=== PATIENT | female | born 1965 | race African-American/Black ===

== ENCOUNTER 2017-07-05 16:55 | Emergency (ER) | payer OTHER ==
[~2017-07-05] VITALS: Ht 165.1 cm; Wt 69.0 kg
[2017-07-05] MEDS ORDERED: INSULIN (16:59)
[2017-07-05 18:50] LABS: *AMPHETAMINES SCREEN URINE NEGATIVE (NEGATIVE); *BARBITURATES SCREEN URINE NEGATIVE (NEGATIVE); *BENZODIAZEPINES SCREEN URINE NEGATIVE (NEGATIVE); *COCAINE SCREEN URINE NEGATIVE (NEGATIVE); CANNABINOID URINE SCREEN NEGATIVE (NEGATIVE); METHADONE URINE SCREEN NEGATIVE (NEGATIVE); OPIATES URINE SCREEN NEGATIVE (NEGATIVE); PHENCYCLIDINE URINE SCREEN NEGATIVE (NEGATIVE)
[2017-07-05 19:02] LABS: HEMATOCRIT. 41.5 % (36.0-48.0); HEMOGLOBIN. 13.8 g/dL (12.0-16.0); MEAN CORPUSCULAR VOLUME 81.1 fL (81.0-99.0); MEAN PLATELET VOLUME 8.6 fl (7.4-10.4); PLATELET 51 x1000/uL (130-400); RED BLOOD CELL COUNT 5.12 mill/uL (4.2-5.4); RED CELL DISTRIBUTION WIDTH 15.4 % (11.6-14.6)
[2017-07-05 19:07] LABS: CARBON DIOXIDE 27 mEq/L (21-32); CHLORIDE 107 mEq/L (98-107); ETHANOL BLOOD 134 mg/dL
[2017-07-05 19:58] LABS: PLATELET ESTIMATE DECREASED
[2017-07-05 21:10] VITALS: BP 114/71
== END 2017-07-05 21:27 | disposition home or self-care (01) ==
LOC: ER 16:55
DX: F10.129 Alcohol abuse with intoxication, unspecified (principal); E11.9 Type 2 diabetes mellitus without complications; R53.1 Weakness; R56.9 Unspecified convulsions; Z79.4 Long term (current) use of insulin; Y90.6 Blood alcohol level of 120-199 mg/100 ml
CPT/HCPCS: 36415; 80053; 80305; 82962; 85025; 99284; G0482

== ENCOUNTER 2017-07-26 14:09 | Emergency (ER) | payer OTHER ==
[~2017-07-26] VITALS: Ht 167.6 cm; Wt 55.0 kg
[~2017-07-26 14:09] MED LIST: INSULIN
[2017-07-26 14:12] VITALS: BP 127/70
[2017-07-27] MEDS ORDERED: NAPR220C7 PO (08:55)
[2017-07-27] MEDS ORDERED: FLUO60SO3 TP (08:55)
[2017-07-27] MEDS ORDERED: GABA-529 PO (08:55)
[2017-07-27] MEDS ORDERED: QUET200T PO (08:55)
[2017-07-27] MEDS ORDERED: PROT20 PO (08:55)
[2017-07-27] MEDS ORDERED: FERR325T6 PO (08:55)
[2017-07-27] MEDS ORDERED: FURO-152 PO (08:55)
[2017-07-27] MEDS ORDERED: PROP10TA10 PO (08:55)
[2017-07-27] MEDS ORDERED: SPIR50TA26 PO (08:55)
[2017-07-27] MEDS ORDERED: LEVE500T19 PO (08:55)
[2017-07-27] MEDS ORDERED: DOCU-150 PO (08:55)
[2017-07-27] MEDS ORDERED: [UNRECOGNIZED DRUG - OTHER] PO (13:34)
[2017-07-27] MEDS ORDERED: CA C1TAB87 PO (13:34)
[2017-07-27] MEDS ORDERED: LIVER SUPPORT PO (13:34)
[2017-07-27] MEDS ORDERED: CHOL20004 PO (13:34)
== END 2017-07-26 17:30 | disposition left against medical advice (07) ==
LOC: ER 14:54
DX: Z53.21 Procedure and treatment not carried out due to patient leaving prior to being seen by health care provider (principal)

== ENCOUNTER 2017-07-26 21:58 | Inpatient (IN) | payer OTHER, MEDICAID ==
[~2017-07-26] VITALS: Ht 175.3 cm; Wt 72.6 kg
[2017-07-26 23:05] LABS: CHLORIDE 108 mEq/L (98-107)
[2017-07-26 23:10] LABS: CARBON DIOXIDE 25 mEq/L (21-32)
[2017-07-26 23:11] LABS: BASOPHILS % 0.4 % (0.0-2.0); EOSINOPHILS % 0.1 % (0.0-5.0); HEMATOCRIT. 36.7 % (36.0-48.0); HEMOGLOBIN. 12.7 g/dL (12.0-16.0); LYMPHOCYTES % 27.4 % (20.0-50.0); MEAN CORPUSCULAR HEMOGLOBIN 29.3 pg (28.0-32.0); MEAN CORPUSCULAR VOLUME 84.7 fL (81.0-99.0); MEAN PLATELET VOLUME 7.8 fl (7.4-10.4); MONOCYTES % 9.4 % (2.0-8.0); NEUTROPHILS % 62.7 % (40.0-76.0); RED BLOOD CELL COUNT 4.33 mill/uL (4.2-5.4); RED CELL DISTRIBUTION WIDTH 20.4 % (11.6-14.6)
[2017-07-26 23:16] LABS: CREATINE KINASE 438 IU/L (26-192); CREATINE KINASE MB FRACTION 1.8 ng/mL (0.5-3.6); TROPONIN I < 0.02 ng/mL (0.00-0.04)
[2017-07-26] MEDS ORDERED: DEXT 10% WATER 1,000 ML IV ONE (23:41)
[2017-07-27 00:38] LABS: CLARITY URINE CLEAR (CLEAR); COLOR URINE YELLOW (YELLOW); GLUCOSE URINE NEGATIVE (NEGATIVE); KETONES URINE NEGATIVE (NEGATIVE); LEUKOCYTE ESTERASE URINE NEGATIVE (NEGATIVE); NITRITE URINE NEGATIVE (NEGATIVE); OCCULT BLOOD URINE NEGATIVE (NEGATIVE); PH URINE 6.5 (4.5-8.0); PROTEIN URINE NEGATIVE (NEGATIVE); SPECIFIC GRAVITY URINE 1.007 (1.005-1.030)
[2017-07-27 05:55] VITALS: BP 137/70
[2017-07-27 06:26] VITALS: BP 137/70
[2017-07-27 08:00] VITALS: BP 118/70
[2017-07-27] MEDS ORDERED: LEVE500T19 PO (08:55)
[2017-07-27] MEDS ORDERED: DOCU-150 PO (08:55)
[2017-07-27] MEDS ORDERED: PROP10TA10 PO (08:55)
[2017-07-27] MEDS ORDERED: FERR325T6 PO (08:55)
[2017-07-27] MEDS ORDERED: GABA-529 PO (08:55)
[2017-07-27] MEDS ORDERED: NAPR220C7 PO (08:55)
[2017-07-27] MEDS ORDERED: QUET200T PO (08:55)
[2017-07-27] MEDS ORDERED: SPIR50TA26 PO (08:55)
[2017-07-27] MEDS ORDERED: PROT20 PO (08:55)
[2017-07-27] MEDS ORDERED: FLUO60SO3 TP (08:55)
[2017-07-27] MEDS ORDERED: FURO-152 PO (08:55)
[2017-07-27] MEDS ORDERED: CLONIDINE 0.1MG TABLET PO PRN (10:00)
[2017-07-27] MEDS ORDERED: DEXTROSE 50% WATER 50ML SYRINGE IV PRN (10:00)
[2017-07-27] MEDS ORDERED: MAGNESIUM 2 G PREMIX 50 ML IV PRN (10:00)
[2017-07-27] MEDS ORDERED: MAGNESIUM/ALUMINUM HYDROXIDE/SIMETHICONE 30ML UDC PO PRN (10:00)
[2017-07-27] MEDS ORDERED: DIPHENHYDRAMINE 50MG/ML VIAL IV PRN (10:00)
[2017-07-27] MEDS: ACETAMINOPHEN 325MG TABLET PO PRN ×2 (11:25→21:14)
[2017-07-27] MEDS: BLOOD SUGAR DIAGNOSTIC STRIP TEST SCH ×3 (11:29→20:46)
[2017-07-27] MEDS ORDERED: POTASSIUM CHLORIDE 20MEQ TABLET SR PO SCH (12:00)
[2017-07-27] MEDS ORDERED: DEXT 5%/0.45% NACL KCL 40MEQ/L 1,000 ML IV SCH (12:00)
[2017-07-27 12:03] VITALS: BP 112/47
[2017-07-27] MEDS: GABAPENTIN 100MG CAPSULE PO SCH ×2 (12:41→16:48)
[2017-07-27] MEDS: INSULIN LISPRO 100 UNITS/ML SUBCUT SCH ×3 (12:47→20:56)
[2017-07-27] MEDS ORDERED: CA C1TAB87 PO (13:34)
[2017-07-27] MEDS ORDERED: LIVER SUPPORT PO (13:34)
[2017-07-27] MEDS ORDERED: [UNRECOGNIZED DRUG - OTHER] PO (13:34)
[2017-07-27] MEDS ORDERED: CHOL20004 PO (13:34)
[2017-07-27 15:10] LABS: *AMPHETAMINES SCREEN URINE NEGATIVE (NEGATIVE); *BARBITURATES SCREEN URINE NEGATIVE (NEGATIVE); *BENZODIAZEPINES SCREEN URINE NEGATIVE (NEGATIVE); *COCAINE SCREEN URINE PRESUMTIVE POSITIVE (NEGATIVE); CANNABINOID URINE SCREEN NEGATIVE (NEGATIVE); METHADONE URINE SCREEN NEGATIVE (NEGATIVE); OPIATES URINE SCREEN NEGATIVE (NEGATIVE); PHENCYCLIDINE URINE SCREEN NEGATIVE (NEGATIVE)
[2017-07-27] MEDS: PROPRANOLOL HCL 10MG TABLET PO SCH (16:48)
[2017-07-27] MEDS: LEVETIRACETAM 500MG TABLET PO SCH (16:49)
[2017-07-27 20:00] VITALS: BP 131/72
[2017-07-27] MEDS: CHLORDIAZEPOXIDE 5 MG CAPSULE PO SCH (21:00)
[2017-07-27] MEDS ORDERED: THIAMINE HCL 100 MG in SODIUM CHLORIDE 0.9% 49 ML IV NR (21:00)
[2017-07-28] VITALS: BP 132/65
[2017-07-28 04:00] VITALS: BP 125/76
[2017-07-28] MEDS: BLOOD SUGAR DIAGNOSTIC STRIP TEST SCH ×3 (06:15→17:04)
[2017-07-28] MEDS: INSULIN LISPRO 100 UNITS/ML SUBCUT SCH ×3 (06:36→17:20)
[2017-07-28] MEDS: CHLORDIAZEPOXIDE 5 MG CAPSULE PO SCH ×2 (06:36→14:02)
[2017-07-28 06:57] LABS: BASOPHILS % 0.2 % (0.0-2.0); EOSINOPHILS % 0.4 % (0.0-5.0); HEMATOCRIT. 36.1 % (36.0-48.0); HEMOGLOBIN. 11.9 g/dL (12.0-16.0); LYMPHOCYTES % 17.6 % (20.0-50.0); MEAN CORPUSCULAR HEMOGLOBIN 28.4 pg (28.0-32.0); MEAN CORPUSCULAR VOLUME 86.1 fL (81.0-99.0); MEAN PLATELET VOLUME 8.7 fl (7.4-10.4); MONOCYTES % 10.7 % (2.0-8.0); NEUTROPHILS % 71.1 % (40.0-76.0); RED CELL DISTRIBUTION WIDTH 20.2 % (11.6-14.6)
[2017-07-28 07:19] LABS: CARBON DIOXIDE 24 mEq/L (21-32); CHLORIDE 104 mEq/L (98-107)
[2017-07-28 07:27] LABS: PLATELET 24 x1000/uL (130-400)
[2017-07-28 08:00] VITALS: BP 123/70
[2017-07-28] MEDS ORDERED: FUROSEMIDE 20MG TABLET PO SCH (09:00)
[2017-07-28] MEDS ORDERED: SPIRONOLACTONE 50MG TABLET PO SCH (09:00)
[2017-07-28] MEDS: PROPRANOLOL HCL 10MG TABLET PO SCH ×2 (09:44→17:19)
[2017-07-28] MEDS: LEVETIRACETAM 500MG TABLET PO SCH ×2 (09:45→17:19)
[2017-07-28] MEDS: GABAPENTIN 100MG CAPSULE PO SCH ×3 (09:45→17:19)
[2017-07-28 12:00] VITALS: BP 121/73
[2017-07-28] MEDS ORDERED: MAGNESIUM 2 G PREMIX 50 ML IV NR (13:30)
[2017-07-28 20:00] VITALS: BP 115/74
[2017-07-28 20:41] VITALS: BP 115/71
[2017-07-28 20:50] LABS: PLATELET 21 x1000/uL (130-400)
== END 2017-07-28 21:38 | disposition short-term general hospital (02) | DRG 637 ==
LOC: ER 22:32 → 5WST 07-27 01:44 → ENRESERV 07-27 02:27 → 5WST 07-27 06:08
PROVIDERS: ADMIT Internal Medicine; ATTEND Internal Medicine
PROC: 30233R1 Transfusion of Nonautologous Platelets into Peripheral Vein, Percutaneous Approach (ICD-10-PCS; principal; 2017-07-27)
DX: E11.649 Type 2 diabetes mellitus with hypoglycemia without coma (principal); G93.41 Metabolic encephalopathy; D69.6 Thrombocytopenia, unspecified; K74.60 Unspecified cirrhosis of liver; F10.20 Alcohol dependence, uncomplicated; Z91.14 Patient's other noncompliance with medication regimen; T38.3X5A Adverse effect of insulin and oral hypoglycemic [antidiabetic] drugs, initial encounter; G40.909 Epilepsy, unspecified, not intractable, without status epilepticus; F41.1 Generalized anxiety disorder; F32.9 Major depressive disorder, single episode, unspecified; Z79.4 Long term (current) use of insulin
CPT/HCPCS: 36415; 36430; 71010; 80053; 80305; 81003; 82550; 82553; 82962; 83735; 84484; 85025; 86850; 86900; 93005; 96360; 96361; 99291; G0482; J1200; J1815; J3411; J3475; J7040; J7050; P9034